=== PATIENT | female | born 1965 | race Caucasian/White ===

== ENCOUNTER 2017-01-24 00:19 | Emergency (ER) ==
[2017-01-24 00:32] VITALS: BP 136/92; TEMP 98.6; BMI 21.6
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
== END 2017-01-24 00:48 | disposition home or self-care (01) ==
LOC: ED 00:19
DX: S90.02XA Contusion of left ankle, initial encounter (principal); V89.2XXA Person injured in unspecified motor-vehicle accident, traffic, initial encounter
CPT/HCPCS: 99282